=== PATIENT | female | born 1980 | race Caucasian/White ===

== ENCOUNTER 2017-10-15 06:51 | Emergency (ER) | payer BC ==
[2017-10-15] MEDS ORDERED: Bupivacaine 0.5% 10 ML SDV INJECT ONE (07:14)
[2017-10-15] MEDS ORDERED: Triamcinolone Acetonide 40 MG/ML 1 ML MDV INJECT ONE (07:15)
--- NOTE | 2017-10-15 07:21 | EDM.PDOC ---
ED HPI GENERAL MEDICAL PROBLEM - General Chief Complaint: Lower Extremity Injury/Pain Stated Complaint: LEFT KNEE PAIN Time Seen by Provider: 10/15/17 07:15 Source of Information: Reports: Patient History Limitations: Reports: No Limitations - History of Present Illness INITIAL COMMENTS - FREE TEXT/NARRATIVE: 36-year-old female presents to the ED with complaints of left knee pain. She's been told she has degenerative arthritic changes in both knees and is followed by Dr. Mejia. She has not had any injections in her knee. She states lately the left knee has been very painful particularly with weightbearing and going up stairs. No falls or recent injuries. Patient is currently taking Mobic 15 mg daily for anti-inflammatory. States pain is been bad enough to interfere with her sleep. Onset: Gradual Duration: Chronic Location: Reports: Lower Extremity, Left (Left knee pain.) Quality: Reports: Ache, Throbbing Improves with: Reports: Rest Worsens with: Reports: Other Context: Denies: Activity (Weightbearing), Exercise, Lifting, Sick Contact, Other Associated Symptoms: Reports: No Other Symptoms Treatments DRAW IN HAND: Reports: NSAIDS (Mobic 15 mg daily) Left Knee Pain Score (Numeric/FACES): 6 - Related Data Allergies Allergy/AdvReac Type Severity Reaction Status Date / Time amoxicillin Allergy Other Verified 10/15/17 07:07 Home Meds: Home Meds Escitalopram [Lexapro] 20 mg PO DAILY 10/15/17 [History] Levothyroxine 75 mcg PO DAILY 10/15/17 [History] Meloxicam [Mobic] 15 mg PO DAILY 10/15/17 [History] Past Medical History 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) Other OB/BYN History: ovary removed Psychiatric History: Reports: Depression Endocrine/Metabolic History: Reports: Hypothyroidism Social & Family History - Tobacco Use Smoking Status *Q: Never Smoker - Caffeine Use Caffeine Use: Reports: Coffee, Soda, Tea Review of Systems - Review of Systems Review Of Systems: See Below Constitutional: Reports: No Symptoms Eyes: Reports: No Symptoms Ears: Reports: No Symptoms Nose: Reports: No Symptoms Mouth/Throat: Reports: No Symptoms Respiratory: Reports: No Symptoms Cardiovascular: Reports: No Symptoms GI/Abdominal: Reports: No Symptoms Genitourinary: Reports: No Symptoms Musculoskeletal: Reports: Joint Pain (Both knees have degenerative arthritic changes according to the patient.) Skin: Reports: No Symptoms Neurological: Reports: No Symptoms Psychiatric: Reports: Depression ED EXAM, GENERAL - Physical Exam Exam: See Below Exam Limited By: No Limitations General Appearance: Alert, WD/WN, No Apparent Distress Extremities: Normal Inspection, Normal Range of Motion, Increased Warmth, Other (No patellofemoral crepitus. There is minimal effusion in both knees.). No: Joint Swelling, Arm Pain, Amparo's Sign, Leg Pain, Limited Range of Motion Neurological: Alert Psychiatric: Normal Affect Skin Exam: Warm, Dry, Intact, Normal Color, No Rash ED JOINT ASPIRATION PROCEDURE - Joint Apsiration/Arthrocentesis Skin prep: Chlorhexidine (Hibiciens) Local Anesthesia - Bupivicaine (Marcaine): 0.5% Plain Local Anesthetic Volume: 4cc Aspiration needle size: 18g Aspirate appearance: other (None.) Joint injection: marcaine, amount: (6 mL), other and amount: (Kenalog 60 mg) Dressing: adhesive dressing Complications: No Course - Vital Signs Last Recorded V/S: Last Vital Signs Temp 36.7 C 10/15/17 07:02 Pulse 65 10/15/17 07:02 Resp 16 10/15/17 07:02 BP 133/79 10/15/17 07:02 Pulse Ox 100 10/15/17 07:02 - Orders/Labs/Meds Orders: Active Orders 24 hr Category Date Time Status Triamcinolone Acetonide [Kenalog-40] Med 10/15/17 07:15 Once 40 mg INJECT ONETIME ONE Medication Orders Triamcinolone Acetonide (Kenalog-40) 40 mg INJECT ONETIME ONE Stop: 10/15/17 07:16 Meds: Medications Generic Name Dose Route Start Last Admin Trade Name Freq PRN Reason Stop Dose Admin Triamcinolone Acetonide 40 mg 10/15/17 07:15 Kenalog-40 INJECT 10/15/17 07:16 ONETIME ONE Discontinued Medications Generic Name Dose Route Start Last Admin Trade Name Freq PRN Reason Stop Dose Admin Bupivacaine HCl 10 ml 10/15/17 07:14 Sensorcaine-Mpf 0.5% INJECT 10/15/17 07:15 ONETIME ONE - Radiology Interpretation Free Text/Narrative:: 36-year-old female presents to the ED with painful left knee. She is claims she has bilateral osteophytic changes in both knees. She's not had any previous injections into the knee. The left knee has become much more painful making it difficult to walk particularly go up and down stairs. Psoas throbbing bad enough to keep her awake at night. She is currently on Mobic 15 mg daily. Decision made to inject the knee with 40 mg of Kenalog which hopefully will provide anti-inflammatory relief for the next 6-8 weeks. She'll be following up with Dr. Mejia in this regard. She is likely candidate for Synvisc. - Re-Assessments/Exams Free Text/Narrative Re-Assessment/Exam: 10/15/17 07:35 left knee injected from the lateral approach utilizing 0.5% bupivacaine to anesthetize the skin and then proceeded to the true knee joint. No aspirate was obtained. Injected with 60 mg of Kenalog without any complications. Patient tolerated procedure well. Departure - Departure Time of Disposition: 07:36 Disposition: Home, Self-Care 01 Condition: Fair Clinical Impression: Knee pain, left anterior - Discharge Information Instructions: Knee Pain, Adult Referrals: Dorys Powell COMMUNITY HEALTH PROGRAM COORDINATOR [Primary Care Provider] - Additional Instructions: Evaluation the emergency room this morning in regards to persistent left knee pain due to degenerative arthritic changes. Decision made to inject the knee with Kenalog and this was performed using bupivacaine anesthesia. 2 mg of Kenalog were injected into the left lateral knee compartment. No problems were encountered. Be aware that due to the knee will flareup a little bit inside be more painful over the next 24 hours and then improve remarkably over the next 24 -48 hours. Opposite this reduce inflammation of the knee for anywhere from 6-12 weeks. Suggest follow-up with Dr. Mejia in the interim. - My Orders Last 24 Hours: My Active Orders 10/15/17 07:15 Triamcinolone Acetonide [Kenalog-40] 40 mg INJECT ONETIME ONE - Assessment/Plan Last 24 Hours: My Active Orders 10/15/17 07:15 Triamcinolone Acetonide [Kenalog-40] 40 mg INJECT ONETIME ONE
[2017-10-15] MEDS ORDERED: Triamcinolone Acetonide 40 MG/ML 1 ML MDV ONE (07:26)
== END 2017-10-15 07:57 | disposition home or self-care (01) ==
LOC: JD.ED 06:51
DX: M25.562 Pain in left knee (principal); E03.9 Hypothyroidism, unspecified; Z88.1 Allergy status to other antibiotic agents; F32.9 Major depressive disorder, single episode, unspecified; Z79.899 Other long term (current) drug therapy
CPT/HCPCS: 20610; 99283; J3301

== ENCOUNTER 2017-10-21 10:08 | Emergency (ER) | payer BC ==
--- NOTE | 2017-10-21 10:52 | EDM.PDOC ---
ED HPI GENERAL MEDICAL PROBLEM - General Chief Complaint: Lower Extremity Injury/Pain Stated Complaint: R KNEE PAIN Time Seen by Provider: 10/21/17 10:21 Source of Information: Reports: Patient History Limitations: Reports: No Limitations - History of Present Illness INITIAL COMMENTS - FREE TEXT/NARRATIVE: The patient presents with bilateral knee pain. She has a history of bad knees with osteoarhtritis. She had a knee injection in the left knee a few days ago. It helped for awhile but now it is back. She was wondering if she could have the right knee injected. She did nothing recently to injury her knees. Onset: Gradual Duration: Week(s): (years) Quality: Reports: Sharp Severity: Moderate Improves with: Reports: Immobilization Worsens with: Reports: Movement Associated Symptoms: Reports: No Other Symptoms Treatments SYSTEM ARCHIVE ANALYST: Reports: Other (see below) Other Treatments SYSTEM ARCHIVE ANALYST: mobic daily Right Knee Pain Score (Numeric/FACES): 6 - Related Data Allergies Allergy/AdvReac Type Severity Reaction Status Date / Time amoxicillin Allergy Other Verified 10/15/17 07:07 Home Meds: Home Meds Escitalopram [Lexapro] 20 mg PO DAILY 10/15/17 [History] Levothyroxine 75 mcg PO DAILY 10/15/17 [History] Meloxicam [Mobic] 15 mg PO DAILY 10/15/17 [History] Hydrocodone/Acetaminophen [Hydrocodon-Acetaminophen 5-325] 1 - 2 each PO Q6HR PRN #20 tablet 10/21/17 [Rx] 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 (See Below) Other OB/BYN History: ovary removed Musculoskeletal History: Reports: Osteoarthritis Psychiatric History: Reports: Depression Endocrine/Metabolic History: Reports: Hypothyroidism Social & Family History - Tobacco Use Smoking Status *Q: Former Smoker Used Tobacco, but Quit: Yes Month/Year Tobacco Last Used: 10 - Caffeine Use Caffeine Use: Reports: Coffee, Soda, Tea - Recreational Drug Use Recreational Drug Use: No Review of Systems - Review of Systems Review Of Systems: See Below Constitutional: Reports: No Symptoms Eyes: Reports: No Symptoms Ears: Reports: No Symptoms Nose: Reports: No Symptoms Mouth/Throat: Reports: No Symptoms Respiratory: Reports: No Symptoms Cardiovascular: Reports: No Symptoms GI/Abdominal: Reports: No Symptoms Musculoskeletal: Reports: Other (Bilateral knee pain) ED EXAM, GENERAL - Physical Exam Exam: See Below Exam Limited By: No Limitations General Appearance: Alert, No Apparent Distress Ears: Normal External Exam Nose: Normal Inspection Head: Atraumatic Respiratory/Chest: No Respiratory Distress Extremities: Other (No edema but she had mild pain upon palpation to both knees. The ligaments were stable to the right knee.) Course - Vital Signs Last Recorded V/S: Last Vital Signs Temp 97.9 F 10/21/17 10:27 Pulse 65 10/21/17 10:27 Resp 20 10/21/17 10:27 BP 117/84 10/21/17 10:27 Pulse Ox 95 10/21/17 10:27 - Re-Assessments/Exams Free Text/Narrative Re-Assessment/Exam: 10/21/17 10:50 I will have her follow up with orthopedic surgery for an injection. I feel it is way to early. Departure - Departure Time of Disposition: 10:55 Disposition: Home, Self-Care 01 Condition: Good Clinical Impression: Bilateral knee pain Qualifiers: Chronicity: chronic Qualified Code(s): M25.561 - Pain in right knee; M25.562 - Pain in left knee; G89.29 - Other chronic pain - Discharge Information Prescriptions: Hydrocodone/Acetaminophen [Hydrocodon-Acetaminophen 5-325] 1 - 2 each PO Q6HR PRN #20 tablet PRN Reason: Pain Referrals: Dorys Powell NP [Primary Care Provider] - Reynaldo Mejia DO [Physician] - 1 Week Additional Instructions: Take the mobic as prescribed. You may also take a hydrocodone as needed. Follow up with Dr Mejia in 1 to 2 weeks.
== END 2017-10-21 11:04 | disposition home or self-care (01) ==
LOC: JD.ED 10:08
DX: M25.561 Pain in right knee (principal); M25.562 Pain in left knee; G89.29 Other chronic pain; E03.9 Hypothyroidism, unspecified; Z88.1 Allergy status to other antibiotic agents; Z79.899 Other long term (current) drug therapy; Z87.891 Personal history of nicotine dependence
CPT/HCPCS: 99283

== ENCOUNTER 2018-07-25 19:35 | Emergency (ER) | payer BC ==
[2018-07-25] MEDS ORDERED: Ketorolac 30 MG/ML SDV IM ONE (20:24)
--- NOTE | 2018-07-25 20:30 | EDM.PDOC ---
ED HPI GENERAL MEDICAL PROBLEM - General Chief Complaint: Lower Extremity Injury/Pain Stated Complaint: KNEE PAIN Time Seen by Provider: 07/25/18 20:16 Source of Information: Reports: Patient, RN Notes Reviewed History Limitations: Reports: No Limitations - History of Present Illness INITIAL COMMENTS - FREE TEXT/NARRATIVE: Patient is a 37-year-old female who presents to the ED for the evaluation of acute left knee pain. She states that she does have chronic knee pain in both knees as she has osteoarthritis. She was standing in line at the grocery store and she states she merely lifted her foot and had pain in her left knee. She states that this was sharp and stabbing in nature and rates this at a 6-7 out of 10 with ambulation. But is a 4 out of 10 when she is not standing or using her knee. She feels as if this is in her knee joint. She did not note any swelling to the left knee. She did not take any pain medications for this as she came directly to the ER after the pain developed from the grocery store. She is not having any hip pain nor any numbness or tingling up her extremity. 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 (See Below) Other CARDIOLOGY CLINICAL NURSE SPECIALIST History: ovary removed Musculoskeletal History: Reports: Osteoarthritis Psychiatric History: Reports: Depression Endocrine/Metabolic History: Reports: Hypothyroidism Social & Family History - Tobacco Use Smoking Status *Q: Never Smoker - Caffeine Use Caffeine Use: Reports: Coffee, Soda, Tea - Recreational Drug Use Recreational Drug Use: No Review of Systems - Review of Systems Review Of Systems: See Below Constitutional: Reports: No Symptoms Eyes: Reports: No Symptoms Ears: Reports: No Symptoms Nose: Reports: No Symptoms Mouth/Throat: Reports: No Symptoms Respiratory: Reports: No Symptoms Cardiovascular: Reports: No Symptoms GI/Abdominal: Reports: No Symptoms Genitourinary: Reports: No Symptoms Musculoskeletal: Reports: Joint Pain (Left knee) Skin: Reports: No Symptoms Neurological: Reports: No Symptoms Psychiatric: Reports: No Symptoms ED EXAM, GENERAL - Physical Exam Exam: See Below Free Text/Narrative:: Exam limited to lower extremities. Exam Limited By: No Limitations General Appearance: Alert, WD/WN, No Apparent Distress Head: Atraumatic, Normocephalic Neck: Normal Inspection, Supple, Non-Tender Respiratory/Chest: No Respiratory Distress, Lungs Clear, Normal Breath Sounds, No Accessory Muscle Use, Chest Non-Tender Cardiovascular: Normal Peripheral Pulses, Regular Rate, Rhythm, No Murmur GI/Abdominal: Normal Bowel Sounds, Soft, Non-Tender, No Distention Back Exam: Normal Inspection, Full Range of Motion Extremities: Normal Inspection, Normal Capillary Refill, Other (Patient's left knee is tender to deep palpation of the knee joint, she is able to move the knee in an appropriate fashion.) Neurological: Alert, Oriented, Normal Cognition, Normal Gait, Normal Reflexes, No Motor/Sensory Deficits Psychiatric: Normal Affect, Normal Mood Skin Exam: Warm, Dry, Intact, Normal Color, No Rash Course - Vital Signs Last Recorded V/S: Last Vital Signs Temp 98.2 F 07/25/18 19:45 Pulse 89 07/25/18 19:45 Resp 16 07/25/18 19:45 BP 128/86 07/25/18 19:45 Pulse Ox 96 07/25/18 19:45 - Orders/Labs/Meds Orders: Active Orders 24 hr Category Date Time Status Ketorolac [Toradol] Med 07/25/18 20:24 Once 30 mg IM ONETIME ONE Medication Orders Ketorolac Tromethamine (Toradol) 30 mg IM ONETIME ONE Stop: 07/25/18 20:25 Meds: Medications Generic Name Dose Route Start Last Admin Trade Name Freq PRN Reason Stop Dose Admin Ketorolac Tromethamine 30 mg 07/25/18 20:24 Toradol IM 07/25/18 20:25 ONETIME ONE - Re-Assessments/Exams Free Text/Narrative Re-Assessment/Exam: 07/25/18 20:35 Patient presents to the ED for acute left knee pain. I did order 30 mg IM Toradol for pain alleviation. Will give general recommendations as this is felt to be an exacerbation of her arthritis in nature. Departure - Departure Time of Disposition: 20:36 Disposition: Home, Self-Care 01 Condition: Fair Clinical Impression: Left knee pain Qualifiers: Chronicity: acute Qualified Code(s): M25.562 - Pain in left knee - Discharge Information *PRESCRIPTION DRUG MONITORING PROGRAM REVIEWED*: No *COPY OF PRESCRIPTION DRUG MONITORING REPORT IN PATIENT LIZBETH: No Instructions: Knee Pain, Adult, [id number] Referrals: Dorys Cruz CARDIAC/VASCULAR SONOGRAPHER [Primary Care Provider] - Additional Instructions: You have been evaluated in the ED for your left knee pain Please use ice as tolerated to the affected area. You may take tylenol 500 mg q6 hrs for pain relief. Please do so until you have a tolerable level of pain with activity. Do not exceed 4000mg tylenol. You already have a prescription for meloxicam, this should provide pretty good relief for pain. Recommend that you follow up with your primary care provider early next week, as may you might benefit from a steroid injection in your knee. Please return to ED if your symptoms should change or worsen. - My Orders Last 24 Hours: My Active Orders 07/25/18 20:24 Ketorolac [Toradol] 30 mg IM ONETIME ONE - Assessment/Plan Last 24 Hours: My Active Orders 07/25/18 20:24 Ketorolac [Toradol] 30 mg IM ONETIME ONE
== END 2018-07-25 20:56 | disposition home or self-care (01) ==
LOC: JD.ED 19:35
DX: M25.562 Pain in left knee (principal); F32.9 Major depressive disorder, single episode, unspecified; E03.9 Hypothyroidism, unspecified; Z88.1 Allergy status to other antibiotic agents; Z79.899 Other long term (current) drug therapy
CPT/HCPCS: 96372; 99283; J1885

== ENCOUNTER 2019-05-24 11:52 | Emergency (ER) | payer BC ==
--- NOTE | 2019-05-24 13:09 | EDM.PDOC ---
ED HPI GENERAL MEDICAL PROBLEM - General Chief Complaint: Lower Extremity Injury/Pain Stated Complaint: RT 4TH TOE INJURY Time Seen by Provider: 05/24/19 12:03 Source of Information: Reports: Patient History Limitations: Reports: No Limitations - History of Present Illness INITIAL COMMENTS - FREE TEXT/NARRATIVE: The patient presents with right 4th toe injury. She accidentally kicked her 's boot a couple days ago. She has ecchymosis and pain to that toe. She has no other injuries or pain. Onset: Sudden Duration: Day(s): (2) Location: Reports: Lower Extremity, Right (4th toe) Quality: Reports: Sharp Severity: Moderate Improves with: Reports: Immobilization Worsens with: Reports: Movement Context: Reports: Trauma (Kicked her 's boot) Associated Symptoms: Reports: No Other Symptoms Right Toe-Ring Pain Score (Numeric/FACES): 2 - Related Data Allergies Allergy/AdvReac Type Severity Reaction Status Date / Time amoxicillin Allergy Other Verified 05/24/19 12:05 Home Meds: Home Meds Levothyroxine 75 mcg PO DAILY 10/15/17 [History] Meloxicam [Mobic] 15 mg PO DAILY 10/15/17 [History] Past Medical History - Past Health History Medical/Surgical History: Denies Medical/Surgical History 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 (See Below) Other CARE MGR History: ovary removed Musculoskeletal History: Reports: Osteoarthritis Psychiatric History: Reports: Depression Endocrine/Metabolic History: Reports: Hypothyroidism - Infectious Disease History Infectious Disease History: Reports: Chicken Pox - Past Surgical History Female Surgical History: Reports: Other (See Below) Other Female Surgeries/Procedures: R ovary removed Social & Family History - Family History Family Medical History: Noncontributory - Tobacco Use Smoking Status *Q: Former Smoker Used Tobacco, but Quit: Yes Month/Year Tobacco Last Used: 2006 - Caffeine Use Caffeine Use: Reports: Coffee, Energy Drinks, Soda, Tea - Recreational Drug Use Recreational Drug Use: No Review of Systems - Review of Systems Review Of Systems: See Below Constitutional: Reports: No Symptoms Eyes: Reports: No Symptoms Ears: Reports: No Symptoms Nose: Reports: No Symptoms Mouth/Throat: Reports: No Symptoms Respiratory: Reports: No Symptoms Cardiovascular: Reports: No Symptoms GI/Abdominal: Reports: No Symptoms Genitourinary: Reports: No Symptoms Musculoskeletal: Reports: Other (right 4th toe pain and swelling) ED EXAM, GENERAL - Physical Exam Exam: See Below Exam Limited By: No Limitations General Appearance: Alert, No Apparent Distress Ears: Normal External Exam Nose: Normal Inspection Neck: Normal Inspection Respiratory/Chest: No Respiratory Distress Extremities: Other (right 4th toe has some ecchymosis, pain upon palpation and swelling. She has good sensation and capillary refill distally.) Course - Vital Signs Last Recorded V/S: Last Vital Signs Temp 97.4 F 05/24/19 12:03 Pulse 88 05/24/19 12:03 Resp 18 05/24/19 12:03 BP 155/93 H 05/24/19 12:03 Pulse Ox 94 L 05/24/19 12:03 - Orders/Labs/Meds Orders: Active Orders 24 hr Category Date Time Status Toes Fourth Digit Rt T8 [CR] Stat Exams 05/24/19 12:22 Taken - Re-Assessments/Exams Free Text/Narrative Re-Assessment/Exam: 05/24/19 13:08 Her x-ray looks good. Departure - Departure Time of Disposition: 13:10 Disposition: Home, Self-Care 01 Condition: Good Clinical Impression: Sprain of toe, fourth, right Qualifiers: Encounter type: initial encounter Qualified Code(s): S93.504A - Unspecified sprain of right lesser toe(s), initial encounter - Discharge Information *PRESCRIPTION DRUG MONITORING PROGRAM REVIEWED*: Not Applicable *COPY OF PRESCRIPTION DRUG MONITORING REPORT IN PATIENT LIZBETH: Not Applicable Referrals: Dorys Cruz, AGRICULTURE SCIENTIST [Primary Care Provider] - 2 Weeks Additional Instructions: Ice your toe for 15 minutes 3 times per day for 2 days. Take motrin or tylenol as needed for pain. Please return if you are worse. Sepsis Event Note - Evaluation Sepsis Screening Result: No Definite Risk - Focused Exam Vital Signs: Vital Signs Temp Pulse Resp BP Pulse Ox 05/24/19 12:03 97.4 F 88 18 155/93 H 94 L Date Exam was Performed: 05/24/19 Time Exam was Performed: 13:04 - My Orders Last 24 Hours: My Active Orders 05/24/19 12:22 Toes Fourth Digit Rt T8 [CR] Stat - Assessment/Plan Last 24 Hours: My Active Orders 05/24/19 12:22 Toes Fourth Digit Rt T8 [CR] Stat
--- NOTE | 2019-05-24 13:44 | CR ---
Right fourth toe: Four views of the right fourth toe were obtained. Several cysts are seen within the fourth toe believed to be incidental. No fracture, dislocation or other bony abnormality is seen. Impression: 1. Slight cystic change within the fourth toe. 2. Nothing acute is seen on right fourth toe study. Diagnostic code #2 This report was dictated in [place] Standard Time
== END 2019-05-24 13:19 | disposition home or self-care (01) ==
LOC: JD.ED 11:52
DX: S93.504A Unspecified sprain of right lesser toe(s), initial encounter (principal); E03.9 Hypothyroidism, unspecified; M19.90 Unspecified osteoarthritis, unspecified site; Z87.891 Personal history of nicotine dependence; Z79.899 Other long term (current) drug therapy; Z88.1 Allergy status to other antibiotic agents; W22.8XXA Striking against or struck by other objects, initial encounter
CPT/HCPCS: 73660-26-T8; 73660-T8; 99282; 99283-25

== ENCOUNTER 2019-12-23 12:34 | Emergency (ER) | payer BC ==
--- NOTE | 2019-12-23 13:07 | EDM.PDOC ---
ED HPI GENERAL MEDICAL PROBLEM - General Chief Complaint: Upper Extremity Injury/Pain Stated Complaint: L SHOULDER PAIN Time Seen by Provider: 12/23/19 13:07 - History of Present Illness INITIAL COMMENTS - FREE TEXT/NARRATIVE: 39-year-old female presents the emergency room with left shoulder pain. This is been going on the last several weeks. It seems to be worse if she sleeps on it wrong. The patient does not have any repetitive activity or anything to suggest an overuse problem. For, she does do some overhead lifting at work. And holding her arm up does aggravate this. She is not having any breathing difficulties or shortness of breath the patiently is currently taken Mobic 15 mg a day for osteoarthritis. Pain is not associated with any shooting pain down her arm. However, at times she does notice that her hands go numb. Left Shoulder Pain Score (Numeric/FACES): 7 - Related Data Allergies Allergy/AdvReac Type Severity Reaction Status Date / Time amoxicillin Allergy Severe Other Verified 12/23/19 12:52 cephalexin Allergy Severe Swelling Verified 12/23/19 12:53 Home Meds: Home Meds Levothyroxine 75 mcg PO DAILY 10/15/17 [History] Meloxicam [Mobic] 15 mg PO DAILY 10/15/17 [History] Cyclobenzaprine [Flexeril] 10 mg PO ASDIRECTED 12/23/19 [History] DULoxetine [Cymbalta] 90 mg PO DAILY 12/23/19 [History] Past Medical History - Past Health History Medical/Surgical History: Denies Medical/Surgical History [employer] History: Reports: Other (See Below) Other [employer] History: ovary removed Musculoskeletal History: Reports: Osteoarthritis Psychiatric History: Reports: Depression Endocrine/Metabolic History: Reports: Hypothyroidism - Infectious Disease History Infectious Disease History: Reports: Chicken Pox - Past Surgical History Female Surgical History: Reports: Other (See Below) Other Female Surgeries/Procedures: R ovary removed Social & Family History - Family History Family Medical History: Noncontributory - Tobacco Use Smoking Status *Q: Never Smoker - Caffeine Use Caffeine Use: Reports: Soda, Tea - Recreational Drug Use Recreational Drug Use: No Review of Systems - Review of Systems Review Of Systems: See Below Constitutional: Reports: No Symptoms Respiratory: Reports: No Symptoms Cardiovascular: Reports: No Symptoms GI/Abdominal: Reports: No Symptoms ED EXAM, GENERAL - Physical Exam Exam: See Below Exam Limited By: No Limitations General Appearance: Alert, No Apparent Distress Throat/Mouth: Normal Inspection, Normal Lips Head: Atraumatic, Normocephalic Neck: Normal Inspection, Supple, Non-Tender Respiratory/Chest: No Respiratory Distress, Lungs Clear, Normal Breath Sounds Cardiovascular: Normal Peripheral Pulses, Regular Rate, Rhythm, No Edema Extremities: Other (Examination of her shoulder is suggestive of calcific tendon tendinitis. The patient has normal arc motion however with abduction she has discomfort above 90 degrees however tin can sign is negative neurovascular status of the distal extremity is normal. Tinel's sign is negative Phalen's and reverse Phalen's is negative however with reverse Phalen's she does notice some mild intermittent wrist discomfort that does not extend up her arm or down her hand.) Course - Vital Signs Last Recorded V/S: Last Vital Signs Temp 36.2 C 12/23/19 12:57 Pulse 81 12/23/19 12:57 Resp 20 12/23/19 12:57 BP 130/91 H 12/23/19 12:57 Pulse Ox 98 12/23/19 12:57 - Orders/Labs/Meds Orders: Active Orders 24 hr Category Date Time Status Shoulder Comp Lt [CR] Stat Exams 12/23/19 13:20 Taken - Re-Assessments/Exams Free Text/Narrative Re-Assessment/Exam: 12/23/19 14:40 Examination of her left shoulder is unremarkable. The patient is on maximal dose of her Mobic. We will have her continue this and I have been to have her try a carpal tunnel splint at night to see if this helps Departure - Departure Time of Disposition: 14:41 Disposition: Home, Self-Care 01 Clinical Impression: Left shoulder pain - Discharge Information Instructions: Shoulder Pain Referrals: Dorys Cruz NP [Primary Care Provider] - Azael Wisdom MD [Physician] - Forms: ED Department Discharge, ED Return to Work/School Form Additional Instructions: Return to the emergency room with any questions problems or worsening symptoms. patient support associate an [id number] carpal tunnel splint and wear this at night and see if this helps with your shoulder pain. Follow-up with Dr. Wisdom in the next couple of weeks and in the meantime we will give the carpal tunnel splint a try to see if this alleviates her symptoms Sepsis Event Note (ED) - Evaluation Sepsis Screening Result: No Definite Risk - Focused Exam Vital Signs: Vital Signs Temp Pulse Resp BP Pulse Ox 12/23/19 12:57 36.2 C 81 20 130/91 H 98 - My Orders Last 24 Hours: My Active Orders 12/23/19 13:20 Shoulder Comp Lt [CR] Stat - Assessment/Plan Last 24 Hours: My Active Orders 12/23/19 13:20 Shoulder Comp Lt [CR] Stat
--- NOTE | 2019-12-23 15:06 | CR ---
Left shoulder: 3 views of the left shoulder were obtained. Comparison: No prior shoulder study. Glenohumeral and acromioclavicular joint appears within normal limits. No acute fracture, dislocation or other bony abnormality is appreciated. Impression: 1. No abnormality is identified on 3 view left shoulder study. Diagnostic code #1 This report was dictated in MDT
== END 2019-12-23 14:58 | disposition home or self-care (01) ==
LOC: JD.ED 12:34
DX: M25.512 Pain in left shoulder (principal); M19.90 Unspecified osteoarthritis, unspecified site; F32.9 Major depressive disorder, single episode, unspecified; E03.9 Hypothyroidism, unspecified; Z91.09 Other allergy status, other than to drugs and biological substances; Z79.899 Other long term (current) drug therapy; Z88.1 Allergy status to other antibiotic agents
CPT/HCPCS: 73030-26-LT; 73030-LT; 99282; 99283-25

== ENCOUNTER 2025-04-07 11:15 | Emergency (ER) | payer BC, OTHER | END 2025-04-07 13:13 | disposition home or self-care (01) | LOC: JD.ED 11:15 | DX: S93.402A Sprain of unspecified ligament of left ankle, initial encounter (principal); E03.9 Hypothyroidism, unspecified; F17.200 Nicotine dependence, unspecified, uncomplicated; Z88.0 Allergy status to penicillin; Z88.1 Allergy status to other antibiotic agents; Z79.890 Hormone replacement therapy; Z79.899 Other long term (current) drug therapy; X50.1XXA Overexertion from prolonged static or awkward postures, initial encounter | CPT/HCPCS: 73610-26-LT; 73610-LT; 99283 ==